=== PATIENT | female | born 1985 | race Caucasian/White ===

== ENCOUNTER 2018-11-16 15:19 | Emergency (ER) | payer BC ==
--- NOTE | 2018-11-16 17:06 | UC ---
Complaint Female HPI - HPI Summary HPI Summary: 33 yo female presents with urinary symptoms. She tells me that for the last 2 days has had burning and itching during urination. She has not taken anything OTC for her symptoms. Is currently on valacyclovir for a mouth cold sore. Denies fever, chills, abdominal pain, n/v, hematuria, flank pain. No vaginal discharge or bleeding. LMP 1 week ago - History Of Current Complaint Stated Complaint: URINARY Time Seen by Provider: 11/16/18 17:06 Hx Obtained From: Patient Onset/Duration: Sudden Onset Severity Initially: Mild Severity Currently: Mild Pain Intensity: 2 Pain Scale Used: 0-10 Numeric - Allergies/Home Medications Allergies/Adverse Reactions: Allergies Allergy/AdvReac Type Severity Reaction Status Date / Time No Known Allergies Allergy Verified 11/16/18 17:16 Home Medications: Home Medications Norethindr/Eth Estradiol(Nf) [Lo Loestrin Fe (NF)] 1 tab PO DAILY 11/16/18 [ History Confirmed 11/16/18] PMH/Surg Hx/FS Hx/Imm Hx - Additional Past Medical History Additional PMH: None - Surgical History Surgical History: None - Family History Known Family History: Positive: None - Social History Occupation: Employed Full-time Lives: With Family Alcohol Use: Occasionally Substance Use Type: None Smoking Status (MU): Never Smoked Tobacco Review of Systems All Other Systems Reviewed And Are Negative: Yes Constitutional: Positive: Negative Skin: Positive: Negative Respiratory: Positive: Negative Cardiovascular: Positive: Negative Genitourinary: Positive: Dysuria Neurovascular: Positive: Negative Neurological: Positive: Negative Psychological: Positive: Negative Physical Exam - Summary Physical Exam Summary: GENERAL: NAD. WDWN. No pain distress. SKIN: No rashes, sores, lesions, or open wounds. NECK: Supple. Nontender. No lymphadenopathy. CHEST: CTAB. No r/r/w. No accessory muscle use. Breathing comfortably and in no distress. CV: RRR. Without m/r/g. Pulses intact. Cap refill <2seconds ABDOMEN: Soft. NTTP. No CVA tenderness. Bowel sounds present NEURO: Alert. PSYCH: Age appropriate behavior. Triage Information Reviewed: Yes Vital Signs: Vital Signs: Temp Pulse Resp BP Pulse Ox 98.8 F 76 18 134/96 100 11/16/18 17:12 11/16/18 17:12 11/16/18 17:12 11/16/18 17:12 11/16/18 17:12 Vital Signs Reviewed: Yes Complaint Female Dx - Course Course Of Treatment: UA positive. Will treat with macrobid and send her urine for culture. - Differential Dx/Diagnosis Provider Diagnosis: UTI (urinary tract infection) Discharge - Sign-Out/Discharge Documenting (check all that apply): Patient Departure All imaging exams completed and their final reports reviewed: No Studies - Discharge Plan Condition: Stable Disposition: HOME Prescriptions: Nitrofurantoin Monohyd/M-Cryst [Macrobid 100 mg Capsule] 100 mg PO BID #10 cap Patient Education Materials: Urinary Tract Infection in Women (DC) Referrals: No Primary Care Phys,NOPCP [Primary Care Provider] - Additional Instructions: If you develop a fever, shortness of breath, chest pain, new or worsening symptoms - please call your PCP or go to the ED immediately. Your blood pressure was slightly elevated at todays visit. Please see your primary provider within 4 weeks for recheck and re-evaluation. - Billing Disposition and Condition Condition: STABLE Disposition: Home
[2018-11-16 17:17] VITALS: BP 134/96
== END 2018-11-16 17:43 | disposition home or self-care (01) ==
LOC: UCEAST 15:19
DX: N39.0 Urinary tract infection, site not specified (principal)
CPT/HCPCS: 81002; 87086; 99212; G0463

== ENCOUNTER 2018-11-28 20:52 | Emergency (ER) | payer BC ==
--- NOTE | 2018-11-28 20:58 | UC ---
Complaint Female HPI - HPI Summary HPI Summary: 33 yo female presents with vaginal itching. She was recently treated for a UTI about a month or two ago and developed a yeast infection s/p anbx that required 2 doses of diflucan to resolve. About 2 weeks ago she had another UTI and was treated with macrobid and developed another yeast infection, which required 2 doses of diflucan to resolve. She is here today because she last took diflucan 1 week ago and her symptoms resolved for 5 days, but today developed vaginal itching again and thinks her yeast infection is back. She denies dysuria, abdominal pain, n/v, flank pain, fever, vaginal discharge. No known hx of diabetes - History Of Current Complaint Stated Complaint: PRIVATE ISSUE Time Seen by Provider: 11/28/18 20:57 Hx Obtained From: Patient Hx Last Menstrual Period: 11/09/18 Onset/Duration: Sudden Onset Severity Initially: Mild Severity Currently: Mild Pain Intensity: 3 Pain Scale Used: 0-10 Numeric - Allergies/Home Medications Allergies/Adverse Reactions: Allergies Allergy/AdvReac Type Severity Reaction Status Date / Time No Known Allergies Allergy Verified 11/28/18 21:01 PMH/Surg Hx/FS Hx/Imm Hx - Additional Past Medical History Additional PMH: None - Surgical History Surgical History: None - Family History Known Family History: Positive: None - Social History Lives: With Family Alcohol Use: Occasionally Substance Use Type: None Smoking Status (MU): Never Smoked Tobacco Review of Systems All Other Systems Reviewed And Are Negative: Yes Constitutional: Positive: Negative Skin: Positive: Negative Respiratory: Positive: Negative Cardiovascular: Positive: Negative Gastrointestinal: Positive: Negative Genitourinary: Positive: Vaginal/Penile Itching Motor: Positive: Negative Neurological: Positive: Negative Psychological: Positive: Negative Physical Exam - Summary Physical Exam Summary: GENERAL: NAD. WDWN. No pain distress. SKIN: No rashes, sores, lesions, or open wounds. NECK: Supple. Nontender. No lymphadenopathy. CHEST: CTAB. No r/r/w. No accessory muscle use. Breathing comfortably and in no distress. CV: RRR. Without m/r/g. Pulses intact. Cap refill <2seconds ABDOMEN: Soft. NTTP. No CVA tenderness. Bowel sounds present NEURO: Alert. PSYCH: Age appropriate behavior. Triage Information Reviewed: Yes Vital Signs: Vital Signs: Temp Pulse Resp BP Pulse Ox 98.4 F 68 16 133/99 100 11/28/18 20:57 11/28/18 20:57 11/28/18 20:57 11/28/18 20:57 11/28/18 20:57 Vital Signs Reviewed: Yes Pelvic Exam: Positive: Other - Scant thick white discharge on inner labia minora with mild raw appearing erythema on vulva. exam assistaed by Lucille ZHANG. Negative: Active Bleeding, Blood, Discharge, Lesions, Ulcers Complaint Female Dx - Course Course Of Treatment: POC glucose: Pelvic exam revealed signs of yeast infection. Culture obtained for affirm. Will treat with diflucan - Differential Dx/Diagnosis Provider Diagnosis: Yeast infection Discharge - Sign-Out/Discharge Documenting (check all that apply): Patient Departure All imaging exams completed and their final reports reviewed: No Studies - Discharge Plan Condition: Stable Disposition: HOME Prescriptions: Fluconazole 150 MG TAB* [Diflucan 150 MG TAB*] 150 mg PO DAILY #2 tablet Patient Education Materials: Yeast Infection (ED) Referrals: No Primary Care Phys,NOPCP [Primary Care Provider] - Additional Instructions: If you develop a fever, shortness of breath, chest pain, new or worsening symptoms - please call your PCP or go to the ED immediately. Your blood pressure was high at todays visit. Please see your primary provider within 4 weeks for recheck and re-evaluation. Take second dose of diflucan in 3 days - Billing Disposition and Condition Condition: STABLE Disposition: Home
[2018-11-28 21:02] VITALS: BP 133/99
[2018-11-28] MEDS ORDERED: Phenazopyridine TAB* 100 MG PO ONE (21:09)
[2018-11-28] MEDS ORDERED: Cephalexin CAP* 500 MG PO ONE (21:09)
[2018-11-28] MEDS ORDERED: Fluconazole 150 MG TAB PO ONE (21:31)
== END 2018-11-28 22:04 | disposition home or self-care (01) ==
LOC: UCEAST 20:52
DX: B37.9 Candidiasis, unspecified (principal)
CPT/HCPCS: 87480; 87510; 87660; 99212; A9270-GY; G0463

== ENCOUNTER 2018-12-01 11:53 | Emergency (ER) | payer BC ==
[2018-12-01 13:07] VITALS: BP 134/90
--- NOTE | 2018-12-01 13:20 | UC ---
Throat Pain/Nasal Darci HPI - HPI Summary HPI Summary: 33-year-old female with a history of recent UTI presents with concern for oral thrush. Patient states that she was on antibiotic for UTI, and had a yeast infection for which she took fluconazole. This morning she noticed that her tongue felt dry and had a white film on it. She is concerned she may have thrush. No fevers, chills, sore throat, history of immunocompromise. - History of Current Complaint Chief Complaint: UCGeneralIllness Stated Complaint: WHITE FILM ON TONGUE Time Seen by Provider: 12/01/18 13:09 Hx Last Menstrual Period: 11/16/18 Pain Intensity: 0 - Allergies/Home Medications Allergies/Adverse Reactions: Allergies Allergy/AdvReac Type Severity Reaction Status Date / Time No Known Allergies Allergy Verified 12/01/18 13:07 PMH/Surg Hx/FS Hx/Imm Hx Previously Healthy: Yes - Surgical History Surgical History: None - Family History Known Family History: Positive: None, Non-Contributory - Social History Alcohol Use: Occasionally Substance Use Type: None Smoking Status (MU): Never Smoked Tobacco Review of Systems All Other Systems Reviewed And Are Negative: Yes ENT: Positive: Other - Dry tongue Physical Exam - Summary Physical Exam Summary: General: Well appearing, no distress HEENT: Tongue with scant white film, minimally able to be scraped off Cardiovascular: Skin is well perfused Pulmonary: No respiratory distress, no tachypnea Abdomen: Non-distended Skin: Warm, pink, dry MSK: no edema Psych: Normal affect Neuro: A&Ox3 Vital Signs: Initial Vital Signs Temp 36.9 C 12/01/18 13:05 Pulse 60 12/01/18 13:05 Resp 16 12/01/18 13:05 BP 134/90 12/01/18 13:05 Pulse Ox 100 12/01/18 13:05 Throat Pain/Nasal Course/Dx - Course Course Of Treatment: 33-year-old female presents with dry tongue and concern for thrush Scant white film on tongue, minimal able to be scraped off. I discussed with her that she could have early thrush. We'll send clotrimazole michelle to her pharmacy and she can pick them up she has continued symptoms tomorrow. - Differential Dx/Diagnosis Provider Diagnosis: Thrush, oral, Dry tongue Discharge - Sign-Out/Discharge Documenting (check all that apply): Patient Departure All imaging exams completed and their final reports reviewed: No Studies - Discharge Plan Condition: Stable Disposition: HOME Prescriptions: Clotrimazole MICHELLE* [Mycelex Michelle*] 10 mg MT SEE INSTRUCTIONS 7 Days #35 michelle Patient Education Materials: Oral Candidiasis (ED) Referrals: [facility] [Outside] Additional Instructions: You were seen at urgent care for thrush. You can take clotrimazole troches ( one 10 mg michelle five times daily) for one week starting tomorrow if you feel like you are still having symptoms. - Billing Disposition and Condition Condition: STABLE Disposition: Home
== END 2018-12-01 13:23 | disposition home or self-care (01) ==
LOC: UCEAST 11:53
DX: B37.9 Candidiasis, unspecified (principal)
CPT/HCPCS: 99212; G0463